=== PATIENT | female | born 1980 | race Two or more races ===

== ENCOUNTER 2017-02-23 07:31 | Inpatient (IN) | payer BC ==
[~2017-02-23] VITALS: Ht 154.9 cm; Wt 83.0 kg
[2017-02-23] MEDS ORDERED: AMPICILLIN 2 GM in SODIUM CHLORIDE 0.9% 100 ML IVPB STA (20:56)
[2017-02-23] MEDS ORDERED: OXYTOCIN 30U/ 0.9% NaCL 500ML 500 ML IV PRN (20:56)
[2017-02-23] MEDS ORDERED: OXYTOCIN 30U/ 0.9% NaCL 500ML 500 ML IV ONE (20:56)
[2017-02-23] MEDS ORDERED: SODIUM CHLORIDE FLUSH 10ML SYR IVF PRN (21:00)
[2017-02-23] MEDS ORDERED: ONDANSETRON 2MG/ML, 2ML IVPush PRN (21:00)
[2017-02-23] MEDS ORDERED: FENTANYL PF 100 MCG/2ML IV PRN (21:00)
[2017-02-23] MEDS: AMPICILLIN 1 GM in SODIUM CHLORIDE 0.9% 50 ML IVPB SCH (21:00)
[2017-02-23] MEDS ORDERED: SODIUM CITRATE/CITRIC ACID 30 ML UDC PO PRN (21:00)
[2017-02-23] MEDS ORDERED: TERBUTALINE 1 MG/ML, 1ML SQ PRN (21:00)
[2017-02-23] MEDS ORDERED: FENTANYL PF 100 MCG/2ML IVPush PRN (21:00)
[2017-02-23] MEDS ORDERED: MISOPROSTOL 25 MCG TABLET VG PRN (21:00)
[2017-02-23] MEDS ORDERED: TERBUTALINE 1 MG/ML, 1ML IVPush PRN (21:00)
[2017-02-23 21:08] VITALS: BP 123/73
[2017-02-23] MEDS ORDERED: PNV1TAB.5 PO (21:18)
[2017-02-23] MEDS ORDERED: ASPI-515 PO (21:19)
[2017-02-23] MEDS ORDERED: INSU100I11 SQ ×2 (21:20→21:21)
[2017-02-23] MEDS ORDERED: NPH,100V SQ ×2 (21:22→21:23)
[2017-02-23] MEDS ORDERED: NEWBORN KIT ONE (21:29)
[2017-02-23] MEDS ORDERED: MISOPROSTOL 25 MCG TABLET ONE (21:39)
[2017-02-23] MEDS ORDERED: OXYTOCIN 30U/ 0.9% NaCL 500ML 500 ML ONE (21:39)
[2017-02-23] MEDS: LACTATED RINGERS 1,000 ML IV SCH (21:50)
[2017-02-24] MEDS ORDERED: MISOPROSTOL 25 MCG TABLET ONE ×2 (02:14→08:57)
[2017-02-24] MEDS: AMPICILLIN 1 GM in SODIUM CHLORIDE 0.9% 50 ML IVPB SCH ×3 (02:15→12:09)
[2017-02-24 06:19] LABS: BLOOD UREA NITROGEN 8 mg/dL (7-18)
[2017-02-24 06:23] LABS: ASPARTATE AMINO TRANSFERASE 9 U/L (15-37)
[2017-02-24] MEDS ORDERED: INSULIN NPH HUMAN 100 UNIT/ML, 3ML VIAL SQ-INSULIN ONE (08:00)
[2017-02-24] MEDS ORDERED: CALCIUM CARBONATE 500 MG TAB.CHEW ONE (09:07)
[2017-02-24] MEDS: CALCIUM CARBONATE 500 MG TAB.CHEW PO PRN ×2 (09:09→10:00)
[2017-02-24] MEDS: LACTATED RINGERS 1,000 ML IV SCH ×4 (09:12→18:38)
[2017-02-24] MEDS ORDERED: INSULIN REGULAR 100 UNITS/ML, 3ML VIAL SQ-INSULIN SCH (11:00)
[2017-02-24] MEDS ORDERED: FENTANYL PF 100 MCG/2ML ONE ×3 (13:12→16:49)
[2017-02-24] MEDS ORDERED: FENTANYL/BUPIV./NS/PF 250 ML EPIDCONT ONE ×2 (13:12→13:15)
[2017-02-24] MEDS ORDERED: BUPIVACAINE 0.25% ONE ×2 (13:12→13:15)
[2017-02-24] MEDS ORDERED: LIDOCAINE 2%, 10ML ONE (13:15)
[2017-02-24] MEDS ORDERED: LIDOCAINE/PF 1.5%-EPI 1:200K, 30ML ONE (13:15)
[2017-02-24] MEDS ORDERED: D5%-LACTATED RINGERS 1,000 ML IV SCH (16:30)
[2017-02-24] MEDS ORDERED: SODIUM CITRATE/CITRIC ACID 30 ML UDC ONE (16:44)
[2017-02-24] MEDS ORDERED: METOCLOPRAMIDE 5 MG/ML, 2ML ONE (16:44)
[2017-02-24] MEDS ORDERED: BUPIVACAINE/PF 0.25% ONE (16:49)
[2017-02-24] MEDS ORDERED: OXYTOCIN 30U/ 0.9% NaCL 500ML 500 ML IV SCH (17:40)
[2017-02-24] MEDS ORDERED: HYDROcodone/APAP 5/325 TABLET PO PRN (18:00)
[2017-02-24] MEDS ORDERED: DOCUSATE 100 MG CAPSULE PO PRN (18:00)
[2017-02-24] MEDS ORDERED: ONDANSETRON 2MG/ML, 2ML IV PRN (18:00)
[2017-02-24] MEDS ORDERED: MISOPROSTOL 200 MCG TABLET PR PRN (18:00)
[2017-02-24] MEDS ORDERED: MEASLES,MUMPS&RUBELLA VACC/PF 0.5 ML SQ PRN (18:00)
[2017-02-24] MEDS ORDERED: CALCIUM CARBONATE 500 MG TAB.CHEW PO PRN (18:00)
[2017-02-24] MEDS ORDERED: METHYLERGONOVINE 0.2 MG/ML IM PRN (18:00)
[2017-02-24] MEDS ORDERED: CARBOPROST TROMETHAMINE 250 MCG/ML, 1ML IM PRN (18:00)
[2017-02-24] MEDS ORDERED: METOCLOPRAMIDE 5 MG/ML, 2ML IVPush ONE (18:30)
[2017-02-24 19:40] VITALS: BP 120/74
[2017-02-24] MEDS ORDERED: FENTANYL/BUPIV./NS/PF 250 ML EPIDCONT SCH (23:08)
[2017-02-24] MEDS ORDERED: LACTATED RINGERS 1,000 ML IV SCH (23:08)
[2017-02-24] MEDS: IBUPROFEN 600 MG TABLET PO PRN (23:20)
[2017-02-24 23:25] VITALS: BP 109/69
[2017-02-24] MEDS ORDERED: LACTATED RINGERS 1,000 ML IVBOLUS PRN (23:30)
[2017-02-25 06:00] VITALS: BP 103/66
[2017-02-25] MEDS: IBUPROFEN 600 MG TABLET PO PRN ×2 (06:25→12:22)
[2017-02-25] MEDS ORDERED: INSULIN ASPART 100 UNITS/ML, PEN SQ-INSULIN SCH (08:00)
[2017-02-25] MEDS ORDERED: INSULIN NPH HUMAN 100 UNIT/ML, 3ML VIAL SQ-INSULIN SCH (08:00)
[2017-02-25 08:30] VITALS: BP 103/65
[2017-02-25] MEDS ORDERED: PRENATAL VIT/IRON/FA 1 EACH TABLET PO SCH (09:00)
[2017-02-25 12:14] VITALS: BP 103/61
[2017-02-25 16:08] VITALS: BP 113/73
[2017-02-25] MEDS ORDERED: IBUP-1222 PO (17:10)
== END 2017-02-25 17:55 | disposition home or self-care (01) | DRG 774 ==
LOC: LDIP 20:52 → 2NW 02-24 19:05
PROVIDERS: ADMIT Student in an Organized Health Care Education/Training Program; ATTEND Student in an Organized Health Care Education/Training Program
PROC: 10E0XZZ Delivery of Products of Conception, External Approach (ICD-10-PCS; principal; 2017-02-24)
PROC: 3E0E7GC Introduction of Other Therapeutic Substance into Products of Conception, Via Natural or Artificial Opening (ICD-10-PCS; 2017-02-24)
PROC: 10907ZC Drainage of Amniotic Fluid, Therapeutic from Products of Conception, Via Natural or Artificial Opening (ICD-10-PCS; 2017-02-24)
PROC: 3E033VJ Introduction of Other Hormone into Peripheral Vein, Percutaneous Approach (ICD-10-PCS; 2017-02-24)
PROC: 3E0R3CZ (ICD-10-PCS; 2017-02-24)
PROC: 00HU33Z Insertion of Infusion Device into Spinal Canal, Percutaneous Approach (ICD-10-PCS; 2017-02-24)
DX: O24.12 Pre-existing type 2 diabetes mellitus, in childbirth (principal); O99.824 Streptococcus B carrier state complicating childbirth; E11.9 Type 2 diabetes mellitus without complications; O69.81X0 Labor and delivery complicated by cord around neck, without compression, not applicable or unspecified; O76 Abnormality in fetal heart rate and rhythm complicating labor and delivery; O90.81 Anemia of the puerperium; D64.9 Anemia, unspecified; Z3A.38 38 weeks gestation of pregnancy; Z37.0 Single live birth; Z90.49 Acquired absence of other specified parts of digestive tract; Z80.8 Family history of malignant neoplasm of other organs or systems; Z86.32 Personal history of gestational diabetes; Z23 Encounter for immunization
CPT/HCPCS: 36415; 80053; 82803; 82962; 83036; 85025; 86850; 86900; J0290; J1815; J3010; J3490; J2590; J7120; J7121